=== PATIENT | female | born 1955 | race Caucasian/White ===

== ENCOUNTER → 2017-05-12 | Outpatient (CLI) | payer OTHER ==
[~2017-05-12] MED LIST: ALBUTEROL0.63 MG/3 INH; AMARYL4 MG PO; AMLODIPINE BESYL5 MG PO; AMMONIUM LACTA225 GM TOP; ASPIRIN81 M1 PO; CYMBALTA30 MG PO; FLUTICASONE PRO16 GM; IPRAT-ALBUT 0.5-3 ML NEB; LACTULOSE20 GM/30 M PO; LASIX40 MG PO; LEVAQUIN500 MG PO; LEVEMIR100 UNIT/1 SC; LEVOTHYROXINE25 MCG PO; METOPROLOL TART25 MG PO; NOVOLOG100 UNITS/ SC; NYSTATIN15 GM TOP; POLYETHYLENE G454 GM PO; POTASSIUM CHLO10 MEQ PO; PROTONIX20 MG PO; QUETIAPINE FUMA25 MG PO; THEOPHYLLINE400 MG PO; VENTOLIN HFA18 GM INH; VICODIN ES 7.51 EACH PO; ZESTRIL10 MG PO
[2017-05-17 13:56] LABS: ANION GAP 18.1 mmol/L (8-16); BLOOD UREA NITROGEN 25 mg/dL (7-26); BUN/CREATININE RATIO 19 (6-25); CARBON DIOXIDE 29 mmol/L (22-29); CHLORIDE 96 mmol/L (98-107); CREATININE, SERUM 1.31 mg/dL (0.57-1.11); EST GLOMERULAR FILTRATION RATE 41 ML/MIN (60-); GLUCOSE 245 mg/dL (74-118); POTASSIUM 4.1 mmol/L (3.5-5.1); SODIUM 139 mmol/L (136-145)
[2017-05-17 13:57] LABS: ALANINE AMINOTRANSFERASE 24 IU/L (0-55); ALBUMIN 3.2 g/dL (3.5-5.0); ALBUMIN/GLOBULIN RATIO 0.7 (0.8-2.0); ALKALINE PHOSPHATASE 79 IU/L (40-150); BASOPHILS % 1.1 % (0.0-1.0); EOSINOPHILS % 4.2 % (0.0-6.0); HEMATOCRIT 33.4 % (34.2-44.1); HEMOGLOBIN 10.3 g/dL (12.0-16.0); LYMPHOCYTES % 33.2 % (18.0-39.1); MEAN CORPUSCULAR HEMOGLOBIN 27.6 pg (28-32); MEAN CORPUSCULAR HGB CONC 30.8 g/dL (31-35); MEAN CORPUSCULAR VOLUME 89.5 fL (81-99); NEUTROPHILS # (AUTO) 3.5 (2.1-6.9); NEUTROPHILS % 52.2 % (38.7-80.0); PLATELET COUNT 363 x10e3/uL (140-360); RED BLOOD COUNT 3.73 x10e6/uL (3.6-5.1); RED CELL DISTRIBUTION WIDTH 15.9 % (11.7-14.4)
[2017-05-17 13:58] LABS: BASOPHILS # (AUTO) 0.1 (0.0-0.1); EOSINOPHILS # (AUTO) 0.3 (0.0-0.4); LYMPHOCYTES # (AUTO) 2.2 (1.0-3.2); MONOCYTES # (AUTO) 0.6 (0.2-0.8)
== END ==
LOC: NPA 13:00
PROVIDERS: ATTEND Internal Medicine
DX: R69 Illness, unspecified (principal)
CPT/HCPCS: 36415; 80053; 85025; 87070; 87086; 87205

== ENCOUNTER → 2017-12-21 | Outpatient (CLI) | payer OTHER | LOC: WCC 11:57 | PROVIDERS: ATTEND Internal Medicine Infectious Disease | DX: E11.621 Type 2 diabetes mellitus with foot ulcer (principal); I87.323 Chronic venous hypertension (idiopathic) with inflammation of bilateral lower extremity; L03.116 Cellulitis of left lower limb; L03.115 Cellulitis of right lower limb; S81.802A Unspecified open wound, left lower leg, initial encounter; R60.0 Localized edema; L30.8 Other specified dermatitis; I10 Essential (primary) hypertension; J44.9 Chronic obstructive pulmonary disease, unspecified ==

== ENCOUNTER 2019-04-16 16:13 | Emergency (ER) | payer OTHER, MEDICARE ==
[~2019-04-16] VITALS: Ht 154.9 cm; Wt 122.9 kg
--- OUTSIDE RECORDS SUMMARY | 2019-04-16 16:16 | XMS REPORT ---
Author Author [facility] Address Unknown Phone Unavailable Care Team Providers Care Supervisor Publications Production Name Role Phone Unavailable Unavailable Problems This patient has no known problems. Allergies, Adverse Reactions, Alerts This patient has no known allergies or adverse reactions. Medications This patient has no known medications. Encounters Start Date/Time End Date/Time Encounter Type Admission Type Attending Clinicians Care Facility Care Department Encounter ID 2018-12-26 21:17:00 2018-12-26 13:19:00 Inpatient [id number] 2018-08-29 13:49:00 2018-08-29 13:49:00 Emergency [id number]
[2019-04-16] MEDS ORDERED: SILVER SULFADIAZINE 50GM CREAM TOP STA (16:27)
[2019-04-16] MEDS ORDERED: SODIUM CHLORIDE 0.9% 1000ML 1,000 ML IV STA (16:29)
[2019-04-16] MEDS ORDERED: SODIUM CHLORIDE 0.9% 1000ML 500 ML IV STA (16:29)
[2019-04-16] MEDS ORDERED: TRIMETHOPRIM/SULFAMETHOXAZOLE 160-800 MG TAB PO ONE (16:30)
--- NOTE | 2019-04-16 17:11 | NUR ---
pt states she is unable to go to the bathroom and refuses striaght cath for ua; notified
[2019-04-16] MEDS ORDERED: INSULIN REGULAR, HUMAN 100 UNIT/1 ML 3ML VIAL IV STA (17:34)
[2019-04-16 17:40] LABS: BASOPHILS % 0.4 % (0.0-1.0); EOSINOPHILS % 0.2 % (0.0-6.0); HEMATOCRIT 37.5 % (34.2-44.1); HEMOGLOBIN 11.2 g/dL (12.0-16.0); LYMPHOCYTES # (AUTO) 0.6 (1.0-3.2); LYMPHOCYTES % 5.9 % (18.0-39.1); MEAN CORPUSCULAR HEMOGLOBIN 27.7 pg (28-32); MEAN CORPUSCULAR HGB CONC 29.9 g/dL (31-35); MEAN CORPUSCULAR VOLUME 92.8 fL (81-99); MONOCYTES # (AUTO) 0.2 (0.2-0.8); MONOCYTES % 2.3 % (4.4-11.3); NEUTROPHILS # (AUTO) 9.4 (2.1-6.9); NEUTROPHILS % 90.7 % (38.7-80.0); PLATELET COUNT 222 x10e3/uL (140-360); RED BLOOD COUNT 4.04 x10e6/uL (3.6-5.1); RED CELL DISTRIBUTION WIDTH 13.6 % (11.7-14.4)
[2019-04-16] MEDS ORDERED: INSULIN REGULAR, HUMAN 100 UNIT/1 ML 3ML VIAL SQ ONE (17:45)
[2019-04-16 18:00] VITALS: BP 148/95
[2019-04-16 18:00] LABS: BILIRUBIN,URINE NEGATIVE (NEGATIVE); CLARITY,URINE CLEAR (CLEAR); COLOR,URINE YELLOW (YELLOW); KETONES,URINE NEGATIVE (NEGATIVE); LEUKOCYTE ESTERASE ,URINE NEGATIVE (NEGATIVE); NITRITE,URINE NEGATIVE (NEGATIVE); PROTEIN,URINE DIPSTICK NEGATIVE (NEGATIVE); URINE UROBILINOGEN 0.2 mg/dL (0.2 - 1)
[2019-04-16 18:01] LABS: ALBUMIN 3.4 g/dL (3.5-5.0); ALBUMIN/GLOBULIN RATIO 0.8 (0.8-2.0); ANION GAP 17.4 mmol/L (8-16); CALCIUM 9.4 mg/dL (8.4-10.2); CREATININE, SERUM 1.9 mg/dL (0.57-1.11); POTASSIUM 4.4 mmol/L (3.5-5.1)
--- NOTE | 2019-04-16 18:05 | NUR ---
lab called with critical lab value 611 bs; pt states she wants to go home; notified and went in to speak to pt; made pt aware of dangers of leaving without medical treatment and benefits of staying pt continues to state she wants to go home again reiterates need for continued treatment for elevated bs and irregular heartrate as seen on 2 ekg's pt continues to state she wants to go home and will sign out ama
--- NOTE | 2019-04-16 18:10 | NUR ---
pt signed out ama with edith rn (charge nurse); edith reiterates need to stay for continued treatment; pt continues to state she wants to go home
[2019-04-16 18:12] LABS: CREATINE KINASE MB 4.2 ng/mL (0-5.0)
[2019-04-16 18:18] LABS: BACTERIA,URINE RARE /HPF; EPITHELIAL CELLS,URINE FEW /LPF; RBC,URINE 0-5 /HPF (0-5)
[2019-04-16 18:23] LABS: MAGNESIUM 1.7 MG/DL (1.3-2.1)
[2019-04-16 18:44] LABS: THYROID STIMULATING HORMONE 0.642 uIU/mL (0.350-4.940)
--- NOTE | 2019-04-16 19:32 | Diagnostic Imaging Report ---
EXAMINATION: CHEST SINGLE (PORTABLE) INDICATION: ^ERMD ORDER ^[id number] ^1815 ^Y COMPARISON: None FINDINGS: AP view TUBES and LINES: None. LUNGS: Lungs are well inflated. Reticular nodular opacities in both lung bases. No lobar consolidations. PLEURA: Trace left pleural effusion. HEART AND MEDIASTINUM: Prominent cardiac silhouette. BONES AND SOFT TISSUES: No acute osseous lesion. Soft tissues are unremarkable. UPPER ABDOMEN: No free air under the diaphragm. IMPRESSION: Radiographic findings are suggestive of interstitial edema and/or atelectasis. Signed by: Dr. Marely Lofton M.D. on 04/16/2019 7:28 PM
== END 2019-04-16 18:32 | disposition left against medical advice (07) ==
LOC: ER 16:13
DX: E11.65 Type 2 diabetes mellitus with hyperglycemia (principal); I48.91 Unspecified atrial fibrillation; I48.92 Unspecified atrial flutter; E66.01 Morbid (severe) obesity due to excess calories; Z68.43 Body mass index [BMI] 50.0-59.9, adult; E11.621 Type 2 diabetes mellitus with foot ulcer; L97.519 Non-pressure chronic ulcer of other part of right foot with unspecified severity; Z79.4 Long term (current) use of insulin
CPT/HCPCS: 36415; 71045; 80053; 81001; 82550; 82553; 83735; 83880; 84443; 84484; 85025; 85651; 87086; 87186; 93005; 99284; J1817; J7030